=== PATIENT | male | born 1955 | race Caucasian/White ===

== ENCOUNTER 2017-08-01 07:51 | Outpatient (CLI) | payer OTHER ==
--- NOTE | 2017-08-01 15:50 | MRI Report ---
EXAM: LEFT KNEE MRI WITHOUT CONTRAST EXAM DATE: 08/01/2017 08:37 AM. CLINICAL HISTORY: Loose body in the knee. Potential meniscal tear. COMPARISON: 11/18/2015 radiograph, MRI 03/04/2016. TECHNIQUE: Multiplanar, multisequence T1-weighted and fluid-sensitive sequences of the knee without c ontrast. Other: None. FINDINGS: Bones: No fractures. The reactive marrow edema is in the medial patellar facet. Articular cartilage: There is mild thinning and surface irregularity of the medial trochlear facet. T he medial compartment articular cartilage demonstrates mild thinning and surface irregularity. The la teral compartment articular cartilage has a focal area of thinning and surface irregularity of the in ferolateral femoral condyle. This can be seen in series 601, image 11. Medial Meniscus: A horizontal tear of the posterior horn of the medial meniscus can be seen in series 601, image 24. This extends into the body. Lateral Meniscus: The lateral meniscus is intact. Cruciate Ligaments: The anterior and posterior cruciate ligaments are intact. Collateral Ligaments: The medial collateral and lateral collateral ligamentous structures are intact. Tendons: The quadriceps, patellar, semimembranosus, and popliteus tendons are unremarkable. Musculature: No edema or fatty atrophy. Other: A mild knee effusion is present. No popliteal cyst. The loose body seen on the prior examinati on is not obviously identified today. The medial and lateral retinacula are intact. Prepatellar subc utaneous edema is present. IMPRESSION: 1. Multifocal chondromalacia. This is similar to the prior examination. 2. Horizontal tear in the body and posterior horn of the medial meniscus, similar to the prior examin ation. 3. Mild knee effusion. [facility] MUSCULOSKELETAL RADIOLOGY SECTION Referring Provider Line: [phone] SITE ID: [id number]
== END 2017-08-01 07:52 | disposition home or self-care (01) ==
LOC: DI 07:51
PROVIDERS: ATTEND Orthopaedic Surgery
DX: S83.242A Other tear of medial meniscus, current injury, left knee, initial encounter (principal); M94.262 Chondromalacia, left knee; M25.462 Effusion, left knee; M23.42 Loose body in knee, left knee

== ENCOUNTER 2017-10-15 13:04 | Outpatient (CLI) | payer OTHER ==
--- NOTE | 2017-10-15 16:52 | MRI Report ---
Procedure Date: 10/15/2017 Accession Number: [id number] / [id number] Procedure: MRI - Knee RT W/O CPT Code: FULL RESULT: EXAM: RIGHT KNEE MRI WITHOUT CONTRAST EXAM DATE: 10/15/2017 02:16 PM. CLINICAL HISTORY: Chronic right knee pain for several years. COMPARISON: None. TECHNIQUE: Multiplanar, multisequence T1-weighted and fluid-sensitive sequences of the knee without contrast. Other: None. FINDINGS: Bones and Articular Cartilage: Small marginal osteophytes at the medial femoral condyle and the patella. Grade 2-3 chondromalacia at the medial femoral condyle. Grade 3-4 chondromalacia and subchondral osteophyte and subchondral marrow edema at the medial patellar facet. Multiple partial-thickness articular cartilage fissures at the remaining patella. No patellar subluxation. Medial Meniscus: Degenerative signal within the posterior horn. No definite tear. Lateral Meniscus: The lateral meniscus is intact. Cruciate Ligaments: The anterior and posterior cruciate ligaments are intact. Collateral Ligaments: The medial collateral and lateral collateral ligamentous structures are intact. Tendons: The quadriceps, patellar, semimembranosus, and popliteus tendons are unremarkable. Musculature: No edema or fatty atrophy. Other: Very small joint effusion. No popliteal cyst. No loose bodies. The medial and lateral retinacula are intact. The subcutaneous tissues and fat pads are unremarkable. IMPRESSION: 1. Chondromalacia patella. 2. Degenerative signal within the posterior horn medial meniscus. No definite tear. 3. Very small joint effusion. [facility] MUSCULOSKELETAL RADIOLOGY SECTION
== END 2017-10-15 13:05 | disposition home or self-care (01) ==
LOC: DI 13:04
PROVIDERS: ATTEND Orthopaedic Surgery
DX: M22.41 Chondromalacia patellae, right knee (principal); M23.303 Other meniscus derangements, unspecified medial meniscus, right knee; M25.461 Effusion, right knee

== ENCOUNTER 2017-11-28 10:22 | Outpatient (CLI) | payer OTHER | END 2017-11-28 10:23 | disposition home or self-care (01) | LOC: RT 10:22 | PROVIDERS: ATTEND Internal Medicine Pulmonary Disease | DX: J84.9 Interstitial pulmonary disease, unspecified (principal) | CPT/HCPCS: 94761 ==

== ENCOUNTER 2017-12-05 09:32 | Outpatient (CLI) | payer OTHER ==
[2017-12-05 10:57] LABS: RHEUMATOID FACTOR NEGATIVE (Negative)
== END 2017-12-05 09:33 | disposition home or self-care (01) ==
LOC: LAB 09:32
PROVIDERS: ATTEND Internal Medicine Pulmonary Disease
DX: J84.9 Interstitial pulmonary disease, unspecified (principal)
CPT/HCPCS: 36415; 81599; 85651; 86140; 86200; 86430

== ENCOUNTER 2018-02-04 12:21 | Outpatient (CLI) | payer MEDICARE, OTHER ==
[2018-02-04 12:41] LABS: BASOPHILS % (AUTO) 0.6 %; EOSINOPHILS # (AUTO) 0.1 10^3/uL (0.0-0.7); EOSINOPHILS % (AUTO) 1.7 %; HGB - HEMOGLOBIN 14.1 g/dL (14.0-18.0); LYMPHOCYTES # (AUTO) 1.3 10^3/uL (1.5-3.5); LYMPHOCYTES % (AUTO) 15.2 %; MEAN CORPUSCULAR HEMOGLOBIN 30.2 pg (27.0-31.0); MEAN CORPUSCULAR HGB CONC 34.6 g/dL (32.0-36.0); MEAN CORPUSCULAR VOLUME 87.4 fL (80.0-94.0); MEAN PLATELET VOLUME 6.7 fL (7.4-11.4); MONOCYTES # (AUTO) 0.8 10^3/uL (0.0-1.0); MONOCYTES % (AUTO) 9.1 %; NEUTROPHILS # (AUTO) 6.3 10^3/uL (1.5-6.6); NEUTROPHILS % (AUTO) 73.4 %; PLT - PLATELET COUNT 215 10^3/uL (130-450); RED BLOOD COUNT 4.67 10^6/uL (4.70-6.10); RED CELL DISTRIBUTION WIDTH 15.1 % (12.0-15.0); WHITE BLOOD COUNT 8.5 x10^3/uL (4.8-10.8)
[2018-02-04 12:59] LABS: ALBUMIN 4.3 g/dL (3.2-5.5); ALBUMIN/GLOBULIN RATIO 1.3 (1.0-2.2); BILIRUBIN,TOTAL 1.1 mg/dL (0.2-1.0); CALCIUM 8.9 mg/dL (8.5-10.3); CREATININE 0.9 mg/dL (0.6-1.2); TOTAL PROTEIN 7.7 g/dL (6.7-8.2)
== END 2018-02-04 12:22 | disposition home or self-care (01) ==
LOC: LAB 12:21
PROVIDERS: ATTEND Internal Medicine Pulmonary Disease
DX: J84.9 Interstitial pulmonary disease, unspecified (principal); M35.8 Other specified systemic involvement of connective tissue; J84.89 Other specified interstitial pulmonary diseases
CPT/HCPCS: 36415; 80053; 85025